=== PATIENT | female | born 1980 | race Caucasian/White ===

== ENCOUNTER 2018-10-30 12:24 | Emergency (ER) | payer OTHER ==
[~2018-10-30] VITALS: Ht 167.6 cm; Wt 82.3 kg
[2018-10-30 12:33] VITALS: BP 156/101
[2018-10-30] MEDS ORDERED: methylPREDNISolone SOD SUCC PF 125 MG/2 ML VIAL. IM ONE (12:45)
--- NOTE | 2018-10-30 13:08 | PHYS DOC ---
Past History Past Medical History: No Pertinent History Past Surgical History: Tubal ligation Alcohol Use: Rarely Drug Use: None Adult General Chief Complaint Chief Complaint: SKIN PROBLEM HPI HPI Patient is a 38-year-old female who presents with complaint of rash and burning with itching to face and forehead. Patient indicates that they just recently sprayed the house for fleas with an insecticide a couple of days ago and they had sprayed their pillows as well. Patient states she primarily sleeps on her stomach and states that she buries her face and her pillow. She states that he has stinging and burning to her face. She denies any shortness of breath or cough.[] [] Review of Systems Review of Systems Constitutional: Denies fever or chills [] Eyes: Denies change in visual acuity, redness, or eye pain [] HENT: Denies nasal congestion or sore throat [] Respiratory: Denies cough or shortness of breath [] Cardiovascular: No additional information not addressed in HPI [] Integument: Positive rash[] Current Medications Current Medications Current Medications Medications (Trade) Dose Ordered Sig/Suze Start Time Stop Time Status Last Admin Dose Admin Methylprednisolone Sodium Succinate (SOLU-Medrol 125MG VIAL) 125 mg 1X ONCE 10/30/18 12:45 10/30/18 12:46 DC 10/30/18 12:55 125 MG Allergies Allergies Allergies Coded Allergies Type Severity Reaction Last Updated Verified amoxicillin Allergy Unknown 10/30/18 Yes erythromycin base Allergy Unknown 10/30/18 Yes Physical Exam Physical Exam Constitutional: Well developed, well nourished, no acute distress, non-toxic appearance. [] HENT: Normocephalic, atraumatic, bilateral external ears normal, oropharynx moist, no oral exudates, nose normal. [] Eyes: PERRLA, EOMI, conjunctiva normal, no discharge. [] Neck: Normal range of motion, no tenderness, supple, no stridor. [] Cardiovascular:Heart rate regular rhythm, no murmur [] Lungs & Thorax: Bilateral breath sounds clear to auscultation [] Skin: There is a confluent erythematous rash noted to the entire face and forehead with sparing around the eyebrows that is warm to touch. [] Extremities: No tenderness, no cyanosis, no clubbing, ROM intact, no edema. [] Current Patient Data Vital Signs Vital Signs Date Time Temp Pulse Resp B/P (MAP) Pulse Ox O2 Delivery O2 Flow Rate FiO2 10/30/18 12:33 98.2 87 18 95 Room Air EKG EKG [] Radiology/Procedures Radiology/Procedures [] Course & Med Decision Making Course & Med Decision Making Pertinent Labs and Imaging studies reviewed. (See chart for details) [] Dragon Disclaimer Dragon Disclaimer This electronic medical record was generated, in whole or in part, using a voice recognition dictation system. Departure Departure: Impression: Primary Impression: Contact dermatitis and other eczema due to other chemical products Disposition: HOME, SELF-CARE Condition: STABLE Referrals: DUY WILL MD (PCP) Patient Instructions: Contact Dermatitis Additional Instructions: You may take [id number] Benadryl and ezuh-[id number]-vsmobiv sunburn remedies as needed for symptomatic relief. MODE HUMPHREYS Jr. DO Oct 30, 2018 13:08
== END 2018-10-30 13:15 | disposition home or self-care (01) ==
LOC: ER 12:24
DX: L25.3 Unspecified contact dermatitis due to other chemical products (principal); Z88.1 Allergy status to other antibiotic agents
CPT/HCPCS: 96372; 99283; J2930